=== PATIENT | female | born 1955 | race Asian ===

== ENCOUNTER 2018-09-09 21:51 | Emergency (ER) | payer SELFPAY ==
[~2018-09-09] VITALS: Ht 154.9 cm; Wt 54.4 kg
[2018-09-09 22:00] VITALS: BP 100/72
--- NOTE | 2018-09-09 22:00 | NUR ---
ED Nurse Note: Per RA 60 patient have discoloration on left arm-no injury. patient is lert and is accompanied by family members, family memebers state that the patient is currently receiving chemo due to a remission in her cancer.
[2018-09-09] MEDS ORDERED: NYSTATIN100000 UN1 ORAL (22:02)
[2018-09-09] MEDS ORDERED: PRILOSEC OTC20 MG ORAL (22:03)
[2018-09-09] MEDS ORDERED: IMODIUM A-1 MG/7.5 M PO (22:03)
[2018-09-09] MEDS ORDERED: FLUCONAZOLE100 MG ORAL (22:03)
[2018-09-09] MEDS ORDERED: DEXAMETHASONE2 MG PO (22:03)
[2018-09-09] MEDS ORDERED: KEPPRA500 M4 ORAL (22:04)
--- NOTE | 2018-09-09 22:16 | Emergency Room Report ---
History of Present Illness General Chief Complaint: Upper Extremity Injury Source: Family Member, EMS Present Illness HPI This is a 63-year-old female with a history of metastatic breast cancer. This is second reoccurrence. It spread to the brain and spine. She just stopped chemotherapy because of side effect. She presents with chief complaint of weakness and altered mental status. Per family, she's been complaining shortness of breath. Family noticed that her extremity show cyanosis. She also has weakness in her right arm and leg. This is worse than before. No nausea no vomiting. Nothing made it better. Any movement or exertion makes it worse. Allergies: Coded Allergies: No Known Allergies (Unverified , 09/09/18) Patient History Past Medical History: see triage record, old chart reviewed Past Surgical History: other - Mastectomy Pertinent Family History: none Social History: Denies: smoking Now: No Immunizations: other Reviewed Nursing Documentation: PMH: Agreed; PSxH: Agreed Nursing Documentation-PMH Past Medical History: No History, Except For Hx Cancer: Yes - breast CA with mets Hx Gastrointestinal Problems: Yes Hx Seizures: Yes Review of Systems Constitutional: Reports: malaise, weakness Eye: Denies: eye pain, blurred vision ENT: Denies: ear pain, nose congestion, throat swelling Respiratory: Reports: cough, shortness of breath Cardiovascular: Denies: chest pain, palpitations Gastrointestinal: Denies: abdominal pain, diarrhea, nausea, vomiting Musculoskeletal: Denies: back pain, joint pain Skin: Denies: rash Neurological: Denies: headache, numbness Endocrine: Denies: increased thirst, increased urine Hematologic/Lymphatic: Denies: easy bruising All Other Systems: negative except mentioned in HPI Physical Exam Vital Signs Date Time Temp Pulse Resp B/P (MAP) Pulse Ox O2 Delivery O2 Flow Rate FiO2 09/09/18 21:55 97.5 138 20 100/72 97 vitals unremarkable Sp02 EP Interpretation: reviewed, normal General Appearance: mild distress, cachetic, Chronically Ill Head: normocephalic, atraumatic Eyes: bilateral eye PERRL, bilateral eye EOMI ENT: hearing grossly normal, normal pharynx Neck: full range of motion, supple, no meningismus Respiratory: chest non-tender, decreased breath sounds, accessory muscle use Cardiovascular #1: regular rate, rhythm, no murmur Gastrointestinal: normal bowel sounds, non tender, no mass, no organomegaly, no bruit, non-distended Musculoskeletal: back normal, normal range of motion Neurologic: alert Psychiatric: mood/affect normal Skin: warm/dry Procedures Critical Care Time Critical Care Time Critical care is mandated in this patient who presented with Subdural hematoma and pneumonia. Patient require my urgent intervention to attenuate the risks of metabolic collapse which may lead to cardiovascular collapse and . Critical care time is 75 minutes excluding any reportable procedure. Critical care time included evaluation, multiple reevaluation, looking at old charts, interpreting laboratory and diagnostic data, discussing case with patient and family and consultants, and charting. Medical Decision Making Diagnostic Impression: Primary Impression: Subdural hematoma Additional Impressions: Pneumonia Qualified Codes: J18.9 - Pneumonia, unspecified organism Pancytopenia Neutropenia Qualified Codes: D70.9 - Neutropenia, unspecified Respiratory failure with hypoxia Qualified Codes: J96.01 - Acute respiratory failure with hypoxia Metastatic breast cancer ER Course This is an unfortunate 63-year-old female presents with shortness of breath. Chest x-ray showed right lung infiltrates. She's also very neutropenic and thrombocytopenic. She had an acute on chronic subdural hematoma. Probably secondary to her low platelet count. Per her son, she has similar presentation with a subdural hematoma about 3 weeks ago. Was seen at [facility]. She was there for 2 days and discharge home. Her breast cancer is primary in [facility]. He just established care with Dr. Alvarez, oncologist at [facility]. This is a reoccurrence of her breast cancer. She had in 2016. Because of her subdural, I tried to transfer to facility with neurosurgical capability. I contacted Dr. Alvarez. Discussed the case with Dr. Holloway who is covering for her. He accepted her to be on his service at [facility]. Unfortunately there is no ICU bed at [facility]. It won't be until in the morning. We try to contact [facility] but no answer from the transfer center. This was attempted multiple times. I also call [facility] and there is no ICU bed. Since family have connection at [facility], we attempted to transfer patient there. So far they may have a bed later on. We'll continue to see we can transfer patient. While she is waiting for transfer, condition deteriorated. Heart rate increased. Oxidation dropped. Patient has increasing work of breathing and respiratory distress. Repeat chest x-ray show increasing infiltrate. I gave her a breathing treatment. I also gave her Tylenol to see if this may be secondary to fever. I also put her on BiPAP which seemed to help. I had a long discussion with her son regarding end-of-life care. They have not discussed any hospice care or DO NOT RESUSCITATE status. Condition is very critical and prognosis extremely poor. She has metastatic cancer with severe neutropenia and thrombocytopenia. She has spontaneous subdural secondary to her thrombocytopenia. Unfortunately, there is no access to neupogen from the ER. There is also no platelets in the hospital. We have to go through the [facility] to get it from [place]. This would not benefit the patient at this moment in time. I spoke with Dr. Jenkins, neuro seam rubbing machine operator at [facility]. She accepted the pt for transfer but want me to discuss case with NS group there to make sure there is no other surgical intervention needed. I tried calling the NS answering service and was told that fabrication supervisor NS Dr. Rankin will not take call from [place]. He will only take calls from [facility] and [facility] in [place]. Will continue to see if we can transfer pt to higher level of care hospitals. I will s/o to Dr. Carrizales for final disposition. Laboratory Tests Test 09/09/18 22:41 09/09/18 22:45 White Blood Count 0.4 K/UL (4.8-10.8) *L Red Blood Count 4.40 M/UL (4.20-5.40) Hemoglobin 15.0 G/DL (12.0-16.0) Hematocrit 44.5 % (37.0-47.0) Mean Corpuscular Volume 101 FL (80-99) H Mean Corpuscular Hemoglobin 34.1 PG (27.0-31.0) H Mean Corpuscular Hemoglobin Concent 33.7 G/DL (32.0-36.0) Red Cell Distribution Width 13.0 % (11.6-14.8) Platelet Count 21 K/UL (150-450) L Mean Platelet Volume 15.0 FL (6.5-10.1) H Neutrophils (%) (Auto) % (45.0-75.0) Lymphocytes (%) (Auto) % (20.0-45.0) Monocytes (%) (Auto) % (1.0-10.0) Eosinophils (%) (Auto) % (0.0-3.0) Basophils (%) (Auto) % (0.0-2.0) Differential Total Cells Counted 100 Neutrophils % (Manual) 22 % (45-75) L Lymphocytes % (Manual) 70 % (20-45) H Monocytes % (Manual) 8 % (1-10) Eosinophils % (Manual) 0 % (0-3) Basophils % (Manual) 0 % (0-2) Band Neutrophils 0 % (0-8) Platelet Estimate Decreased L Platelet Morphology Normal Macrocytosis 1+ Marvin Cells 1+ Prothrombin Time 12.0 SEC (9.30-11.50) H Prothromb Time International Ratio 1.1 (0.9-1.1) Activated Partial Thromboplast Time 27 SEC (23-33) Sodium Level 137 MMOL/L (136-145) Potassium Level 3.5 MMOL/L (3.5-5.1) Chloride Level 103 MMOL/L (98-107) Carbon Dioxide Level 25 MMOL/L (21-32) Anion Gap 9 mmol/L (5-15) Blood Urea Nitrogen 17 mg/dL (7-18) Creatinine 0.8 MG/DL (0.55-1.30) Estimat Glomerular Filtration Rate > 60 mL/min (>60) Glucose Level 250 MG/DL (74-106) H Calcium Level 6.5 MG/DL (8.5-10.1) L Total Bilirubin 1.2 MG/DL (0.2-1.0) H Direct Bilirubin 0.2 MG/DL (0.0-0.3) Aspartate Amino Transf (AST/SGOT) 38 U/L (15-37) H Alanine Aminotransferase (ALT/SGPT) 76 U/L (12-78) Alkaline Phosphatase 109 U/L (46-116) Total Protein 4.9 G/DL (6.4-8.2) L Albumin 1.9 G/DL (3.4-5.0) L Globulin 3.0 g/dL Albumin/Globulin Ratio 0.6 (1.0-2.7) L Urine Color Brooke Urine Appearance Slightly cloudy Urine pH 6 (4.5-8.0) Urine Specific [place] 1.015 (1.005-1.035) Urine Protein 2+ (NEGATIVE) H Urine Glucose (UA) 3+ (NEGATIVE) H Urine Ketones 4+ (NEGATIVE) H Urine Blood 3+ (NEGATIVE) H Urine Nitrite Negative (NEGATIVE) Urine Bilirubin Negative (NEGATIVE) Urine Ictotest Negative (NEGATIVE) Urine Urobilinogen Normal MG/DL (0.0-1.0) Urine Leukocyte Esterase 1+ (NEGATIVE) H Urine RBC 5-10 /HPF (0 - 2) H Urine WBC 2-4 /HPF (0 - 2) Urine Squamous Epithelial Cells Occasional /LPF Urine Bacteria Few /HPF (NONE) Lab Results Impression labs with severe neutropenia and thrombocytopenia EKG Diagnostic Results Rate: tachycardiac Rhythm: NSR ST Segments: other - NSST changes ASA given to the pt in ED: No Rhythm Strip Diag. Results Rhythm Strip Time: 03:20 EP Interpretation: yes Rate: 129 Rhythm: NSR Chest X-Ray Diagnostic Results Chest X-Ray Diagnostic Results #1: Chest X-Ray Ordered: Yes # of Views/Limited/Complete: 1 View Indication: Shortness of Breath EP Interpretation: Yes Interpretation: no effusion, no pneumothorax, other - RML and RLL interstitial infiltrate Impression: Other - Rt lung infiltrate Electronically Signed by: Eder Carr MD Chest X-Ray Diagnostic Results #2: Chest X-Ray Ordered: Yes # of Views/Limited/Complete: 1 View Indication: Shortness of Breath EP Interpretation: Yes Interpretation: no effusion, no pneumothorax, other - increasing rt lung infiltrates Impression: Other - Increasing infiltrates Electronically Signed by: Eder Carr MD CT/MRI/US Diagnostic Results CT/MRI/US Diagnostic Results : Imaging Test Ordered: Ct head Impression Read by radiologist. There is a subdural hematoma left frontal parietal region measuring up to 10 mm in thickness. This is an acute to subacute process. There is a calcified extra axial mass. Last Vital Signs Date Time Temp Pulse Resp B/P (MAP) Pulse Ox O2 Delivery O2 Flow Rate FiO2 09/09/18 21:55 97.5 138 20 100/72 97 Status: improved Disposition: XFER SHT-TRM HOSP Condition: Critical Eder Carr MD Sep 09, 2018 22:16
[2018-09-09 22:51] LABS: HEMATOCRIT 44.5 % (37.0-47.0); MEAN CORPUSCULAR VOLUME 101 FL (80-99); PLATELET COUNT 21 K/UL (150-450)
[2018-09-09 22:59] LABS: WHITE BLOOD COUNT 0.4 K/UL (4.8-10.8)
[2018-09-09 23:05] LABS: ANION GAP 9 mmol/L (5-15); BLOOD UREA NITROGEN 17 mg/dL (7-18); CALCIUM 6.5 MG/DL (8.5-10.1); CARBON DIOXIDE 25 MMOL/L (21-32); CHLORIDE 103 MMOL/L (98-107); CREATININE 0.8 MG/DL (0.55-1.30); POTASSIUM 3.5 MMOL/L (3.5-5.1); SODIUM 137 MMOL/L (136-145)
[2018-09-09 23:05] LABS: APPEARANCE,URINE SLIGHTLY CLOUDY; BILIRUBIN, URINE NEGATIVE (NEGATIVE); COLOR,URINE AMBER; GLUCOSE, URINE (UA) 3+ (NEGATIVE); KETONES,URINE 4+ (NEGATIVE); LEUKOCYTE ESTERASE ,URINE 1+ (NEGATIVE); NITRITE,URINE NEGATIVE (NEGATIVE); PH,URINE 6 (4.5-8.0); PROTEIN,URINE 2+ (NEGATIVE); UROBILINOGEN,URINE NORMAL MG/DL (0.0-1.0)
[2018-09-09 23:12] LABS: INR 1.1 (0.9-1.1)
[2018-09-09 23:17] LABS: ALANINE AMINOTRANSFERASE 76 U/L (12-78); ALBUMIN 1.9 G/DL (3.4-5.0); ALBUMIN/GLOBULIN RATIO 0.6 (1.0-2.7); ALKALINE PHOSPHATASE 109 U/L (46-116); ASPARTATE AMINO TRANSFERASE 38 U/L (15-37); BILIRUBIN,TOTAL 1.2 MG/DL (0.2-1.0)
[2018-09-09 23:18] LABS: BILIRUBIN,DIRECT 0.2 MG/DL (0.0-0.3)
[2018-09-10] VITALS (7 sets, daily range): BP systolic 87–105; BP diastolic 67–79
[2018-09-10] MEDS ORDERED: levETIRAcetam 500mg/NS100ml 100 ML IVPB ONE
[2018-09-10] MEDS ORDERED: Cefepime HCl 1 GM in D5W 55 ML IVPB ONE ×2
--- NOTE | 2018-09-10 00:12 | NUR ---
spoke with (covering for ), accepted patient to go to [facility], awaiting for face sheet to be updated(to be faxed to [facility]).
[2018-09-10] MEDS ORDERED: TBO-Filgrastim 300 mcg/0.5ml SQ ONE (00:15)
--- NOTE | 2018-09-10 00:18 | NUR ---
Face sheet faxed to [facility].
--- NOTE | 2018-09-10 00:42 | NUR ---
There is no [employer] at night locker, [employer] does not know, nursing admissions supervisor contacted to call pharmacist.
--- NOTE | 2018-09-10 01:57 | NUR ---
One hour on line with [facility] to responce.
--- NOTE | 2018-09-10 01:59 | NUR ---
[facility] called per family request (patient was at [facility] few weeks ago), spoke with Vivienne-nursing quality assurance supervisor body.
[2018-09-10] MEDS ORDERED: Morphine Sulfate 2mg/ml Inj IVP ONE ×2 (02:00→03:15)
--- NOTE | 2018-09-10 02:00 | NUR ---
ED Nurse Note: unable to administer filgastrim to patient, made contact with cathi to which cathi said to contact nursing supervisor tree trimming, made contact with nursing supervisor tree trimming, supervisor tree trimming said that we currently do not have the medication
--- NOTE | 2018-09-10 02:03 | NUR ---
ED Nurse Note: patient's heart rate went up to 150s and also desatted to 85%, Dr. Carr notified and aware , patient also complained of lower abdomen pain, Patient was given pain medicine along with a breathing treatment
--- NOTE | 2018-09-10 02:05 | NUR ---
Face sheet and CT report raxed to [facility]([phone]) as requested
--- NOTE | 2018-09-10 02:05 | NUR ---
[facility] contacted, spoke with comptometer operator-(Rich)-no beds.
[2018-09-10] MEDS ORDERED: Albuterol ud Inhalation ONE (02:06)
[2018-09-10] MEDS ORDERED: Albuterol ud Inhalation HHN ONE (02:15)
--- NOTE | 2018-09-10 02:17 | NUR ---
Tej at [facility] stated he had no beds available for the patient.
[2018-09-10] MEDS ORDERED: dilTIAZem HCl 25mg/5ml Inj IVP ONE (02:45)
[2018-09-10] MEDS ORDERED: Acetaminophen 500mg (ES) tab ORAL ONE (02:45)
--- NOTE | 2018-09-10 02:58 | NUR ---
labs were faxed to [facility]
--- NOTE | 2018-09-10 03:22 | NUR ---
HAND-OFF: Report given to JENNY Larsen.
[2018-09-10] MEDS ORDERED: Dexamethasone 4mg/ml vial IVP ONE (03:30)
--- NOTE | 2018-09-10 03:43 | NUR ---
ED Nurse Note: ermd ordered decardon 10mg iv and carried out. ermd ordered morphine for pain but unable to give yet because sbp <100. pt made aware and agreed. pt sttill on bipap. will continue to monitor.
[2018-09-10] MEDS ORDERED: Lidocaine 2% Visc 15ml soln ORAL ONE (07:30)
--- NOTE | 2018-09-10 07:43 | NUR ---
ED Nurse Note: called kayleigh rn from [facility] to give report. kayleigh stated that pt is going to room [address] [place] [address].
--- NOTE | 2018-09-10 08:38 | NUR ---
ED Nurse Note:pt. was picked up by [facility] ambulance transport and taken to higher level [facility] care hospital, condition stable for transportation, report given to EMS
--- NOTE | 2018-09-10 15:52 | Diagnostic Imaging Report ---
EXAM: XR Chest, 1 View CLINICAL HISTORY: SOB TECHNIQUE: Frontal view of the chest. COMPARISON: No relevant prior studies available. FINDINGS: Lungs: Some mild increased hazy opacities are projected in the mid and lower lung suggestive of edema and/or infiltrate. Low lung volumes. Pleural space: No definite plain film evidence for pneumothorax. Heart: Unremarkable. No cardiomegaly. Mediastinum: Unremarkable. Bones/joints: Mild vertebral body compression fractures suspected at T12 and T9. It is unclear if these are acute or chronic. Probable old bilateral rib fractures. Tubes, lines and devices: Left-sided central line with tip projected in the region of the superior vena cava. IMPRESSION: 1. Some mild increased hazy opacities are projected in the mid and lower lung suggestive of edema and/or infiltrate. 2. Mild vertebral body compression fractures suspected at T12 and T9. It is unclear if these are acute or chronic.
--- NOTE | 2018-09-10 15:52 | Diagnostic Imaging Report ---
EXAM: CT Head Without Intravenous Contrast CLINICAL HISTORY: AMS TECHNIQUE: Axial computed tomography images of the head/brain without intravenous contrast. CTDI is 0.15, 70.38 mGy and DLP is 1424 mGy-cm. One or more of the following dose reduction techniques were used: automated exposure control, adjustment of the mA and/or kV according to patient size, use of iterative reconstruction technique. COMPARISON: No relevant prior studies available. FINDINGS: Brain: There is a subdural hematoma in the left frontoparietal region measuring up to 10 mm in thickness. This demonstrates areas of CSF density and areas of increased density which suggests an acute to subacute process. Partially calcified extra-axial mass in the left frontotemporal region measuring approximately 10 mm which is likely related to a small meningioma. Areas of decreased density in the white matter which are nonspecific but are likely related to small vessel ischemic changes. Cerebral atrophy. Small area of encephalomalacia in the left frontotemporal region. Punctate calcification in the right parietal occipital region suggestive of a prior infectious/inflammatory process. A small punctate calcification is also noted in the cerebellum on the left. Probable old lacunar infarcts in the region of the maaz radiata bilaterally. Midline shift: No evidence for significant midline shift. Ventricles: Unremarkable. Bones/joints: Unremarkable. No acute fracture. Soft tissues: Unremarkable. Sinuses: Unremarkable as visualized. No acute sinusitis. Mastoid air cells: Minimal opacification of the mastoid air cells. IMPRESSION: 1. There is a subdural hematoma in the left frontoparietal region measuring up to 10 mm in thickness. This demonstrates areas of CSF density and areas of increased density which suggests an acute to subacute process. 2. Partially calcified extra-axial mass in the left frontotemporal region measuring approximately 10 mm which is likely related to a small meningioma. 3. Cerebral atrophy with probable small vessel ischemic changes. Probable old lacunar infarcts in the region of the maza radiata. [employer] 09/09/18 23:46 Call Doctor Regarding Intracranial Hemorrhage, called Eder Carr MD on 09/09 23:46 (-08:00)
--- NOTE | 2018-09-10 15:52 | Diagnostic Imaging Report ---
EXAM: XR Chest, 1 View CLINICAL HISTORY: SOB TECHNIQUE: Frontal view of the chest. COMPARISON: 09/09/18 FINDINGS: Lungs: Some increased hazy opacity projected in the right upper lung suggestive of edema and/or infiltrate. Probable mild atelectasis at the lung bases. Pleural space: No plain film evidence for pneumothorax. Heart: Unremarkable. No cardiomegaly. Mediastinum: There is some prominence of the mediastinum which may at least partly be related to patient rotation. Bones/joints: Old bilateral rib fractures. Tubes, lines and devices: Left sided central line with tip projected in the region of the superior vena cava. IMPRESSION: 1. Some increased hazy opacity projected in the right upper lung suggestive of edema and/or infiltrate. 2. Probable mild atelectasis at the lung bases.
== END 2018-09-10 08:48 | disposition short-term general hospital (02) ==
LOC: EDBD 21:51 → EMR 22:09
DX: S06.5X9A Traumatic subdural hemorrhage with loss of consciousness of unspecified duration, initial encounter (principal); J18.9 Pneumonia, unspecified organism; D70.9 Neutropenia, unspecified; J96.01 Acute respiratory failure with hypoxia; D61.818 Other pancytopenia; C50.919 Malignant neoplasm of unspecified site of unspecified female breast; C79.31 Secondary malignant neoplasm of brain; C79.51 Secondary malignant neoplasm of bone; Z90.10 Acquired absence of unspecified breast and nipple; D69.6 Thrombocytopenia, unspecified; R00.0 Tachycardia, unspecified
CPT/HCPCS: 36415; 70450; 71045; 80053; 81001; 82248; 85007; 85025; 85610; 85730; 94640; 94664; 96361; 96365; 96367; 96368; 96375; 99291; 99292; J0692; J1100; J1447; J1953; J1956; J2270; J2405